=== PATIENT | female | born 1980 | race Caucasian/White ===

== ENCOUNTER 2017-03-19 23:41 | Emergency (ER) | payer OTHER ==
[~2017-03-19] VITALS: Ht 157.5 cm; Wt 61.2 kg
[2017-03-19 23:41] VITALS: BP_SYST 129
--- NOTE | 2017-03-19 23:41 | NUR ---
Patient to ER bed 7 to gown for evaluation. Side rails up. Report given to RAFAEL Teresa.
[2017-03-20] MEDS ORDERED: PREN-89 PO (00:06)
--- NOTE | 2017-03-20 00:18 | NUR ---
Pt noted spotting when pt voided. Pt stated she noted spotting 03/19/17 as well but stopped. Pt has gravid 5, PARA 4. Pt denied abdominal pain or discomfort at the time. Pt denied nausea or vomiting. Will continue to monitor
--- NOTE | 2017-03-20 00:29 | NUR ---
ER Dr. Trinidad at bedside examining patient.
[2017-03-20 00:54] VITALS: BP_SYST 118
[2017-03-20 01:15] LABS: BASOPHILS # (AUTO) 0.1 K/uL (0.0-0.2); BASOPHILS % (AUTO) 0.5 % (0.0-2.0); EOSINOPHILS # (AUTO) 0.8 K/uL (0.0-0.4); EOSINOPHILS % (AUTO) 7.2 % (0.0-4.0); HEMOGLOBIN 12.9 g/dL (12.0-16.0); MEAN CORPUSCULAR HEMOGLOBIN 32 pg (27-31); MEAN CORPUSCULAR HGB CONC 34 % (32-36); MEAN CORPUSCULAR VOLUME 94 fL (79.0-98.0); MONOCYTES # (AUTO) 0.5 K/uL (0.0-1.0); NEUTROPHILS % (AUTO) 53.3 % (40.0-70.0); PLATELET COUNT (AUTO) 222 K/uL (130-430); RED BLOOD CELL COUNT(AUTO) 4.06 MIL/uL (4.2-6.2); RED CELL DISTRIBUTION WIDTH 12.8 % (9.0-15.0); WHITE BLOOD COUNT (AUTO) 11.4 K/uL (4.8-10.8)
[2017-03-20 01:25] LABS: CALCIUM 8.8 mg/dL (8.4-11.0); CREATININE 0.61 mg/dL (0.55-1.30); POTASSIUM 3.8 mmol/L (3.5-5.1)
[2017-03-20 02:01] LABS: ALBUMIN 3.7 g/dL (3.4-4.8); TOTAL BILIRUBIN 0.3 mg/dL (0.0-1.0); TOTAL PROTEIN, SERUM 7.1 g/dL (6.4-8.3)
--- NOTE | 2017-03-20 03:19 | NUR ---
Patient given written and verbal discharge instructions and verbalizes understanding. ER MD discussed with patient the results and treatment provided. Patient in stable condition. ID arm band removed. Pt educated to follow up with her OBGYN. Verbalized understanding. No Rx of given. Patient educated on pain management and to follow up with PMD. Pain Scale 0/10. Opportunity for questions provided and answered.
[2017-03-20 03:58] LABS: BILIRUBIN,URINE NEGATIVE (NEGATIVE); BLOOD, URINE 2+ (NEGATIVE); CLARITY/URINE CLEAR (CLEAR); COLOR,URINE YELLOW (YELLOW); GLUCOSE,URINE NEGATIVE (NEGATIVE); KETONES,URINE NEGATIVE (NEGATIVE); LEUKOCYTE ESTERASE ,URINE NEGATIVE (NEGATIVE); NITRITE, URINE NEGATIVE (NEGATIVE); PROTEIN URINE NEGATIVE (NEGATIVE); UROBILINOGEN,URINE 0.2 (0.2-1.0)
[2017-03-20 04:01] LABS: BACTERIA,URINE FEW /HPF (None Seen); MUCUS,URINE None Seen /LPF (None Seen); RBC,URINE 0-3 /HPF (0-3); WBC,URINE 0-3 /HPF (0-3)
== END 2017-03-20 03:19 | disposition home or self-care (01) ==
LOC: SED 23:41
DX: O20.9 Hemorrhage in early pregnancy, unspecified (principal); Z3A.08 8 weeks gestation of pregnancy
CPT/HCPCS: 36415; 76801; 76817; 80053; 81000-TC; 81025; 84702-TC; 85025; 86900; 86901; 99285

== ENCOUNTER 2017-03-21 05:12 | Emergency (ER) | payer OTHER ==
[~2017-03-21] VITALS: Ht 157.5 cm; Wt 61.2 kg
[2017-03-21 05:12] VITALS: BP_SYST 121
[~2017-03-21 05:12] MED LIST: PREN-89 PO
--- NOTE | 2017-03-21 05:12 | NUR ---
Patient to ER bed 7 to gown for evaluation. Side rails up. Report given to RAFAEL ALONSO.
--- NOTE | 2017-03-21 05:13 | NUR ---
Pt brought in by in stable condition. Pt c/o abd pain and vaginal bleeding since 0030 this morning. Pt stated that she is 6 weeks . Pt stated that she noticed vaginal bleeding since 03/19. Pt stated that she had passed multiple clots since vaginal bleeding began. -sob -chest pain. No acute distress noted at this time, will continue to monitor
--- NOTE | 2017-03-21 05:13 | NUR ---
ER at bedside examining patient.
--- NOTE | 2017-03-21 05:30 | NUR ---
Accompanied Dr. Bravo for pelvic exam.
[2017-03-21 06:11] VITALS: BP_SYST 124
--- NOTE | 2017-03-21 06:11 | NUR ---
Patient given written and verbal discharge instructions and verbalizes understanding. ER MD WEAVER discussed with patient the results and treatment provided. Patient in stable condition. ID arm band removed. NO Rx given. Patient educated on pain management and to follow up with PMD. Pain Scale 0/10. Opportunity for questions provided and answered.
== END 2017-03-21 06:11 | disposition home or self-care (01) ==
LOC: SED 05:12
DX: O03.9 Complete or unspecified spontaneous abortion without complication (principal); Z3A.01 Less than 8 weeks gestation of pregnancy
CPT/HCPCS: 88305; 99283

== ENCOUNTER → 2017-04-09 | Outpatient (CLI) | payer OTHER | END | disposition home or self-care (01) | LOC: SLB 22:48 | PROVIDERS: ATTEND Specialist | DX: O03.9 Complete or unspecified spontaneous abortion without complication (principal); Z3A.00 Weeks of gestation of pregnancy not specified | CPT/HCPCS: 36415; 84702-TC ==

== ENCOUNTER 2017-04-26 02:26 | Outpatient (CLI) | payer OTHER | END 2017-04-26 20:26 | disposition home or self-care (01) | LOC: SLB 02:26 | PROVIDERS: ATTEND Specialist | DX: O02.1 Missed abortion (principal); Z3A.00 Weeks of gestation of pregnancy not specified | CPT/HCPCS: 36415; 84702-TC ==

== ENCOUNTER 2019-01-16 09:40 | Day surgery (SDC) | payer OTHER ==
[2019-01-14 15:17] LABS: BASOPHILS % (AUTO) 0.3 % (0.0-2.0); EOSINOPHILS # (AUTO) 0.4 K/uL (0.0-0.4); HEMATOCRIT 40.7 % (36-48); HEMOGLOBIN 13.8 g/dL (12.0-16.0); LYMPHOCYTES # (AUTO) 3.7 K/uL (1.0-5.5); LYMPHOCYTES % (AUTO) 50.9 % (20.5-51.5); MEAN CORPUSCULAR HEMOGLOBIN 31 pg (27-31); MEAN CORPUSCULAR HGB CONC 34 % (32-36); MEAN CORPUSCULAR VOLUME 90 fL (79.0-98.0); MONOCYTES # (AUTO) 0.3 K/uL (0.0-1.0); MONOCYTES % (AUTO) 4.7 % (1.7-9.3); NEUTROPHILS # (AUTO) 2.8 K/uL (1.8-7.7); NEUTROPHILS % (AUTO) 38.1 % (40.0-70.0); PLATELET COUNT (AUTO) 244 K/uL (130-430); RED CELL DISTRIBUTION WIDTH 13.9 % (9.0-15.0); WHITE BLOOD COUNT (AUTO) 7.3 K/uL (4.8-10.8)
[2019-01-14 15:39] LABS: BILIRUBIN,URINE NEGATIVE (NEGATIVE); CLARITY/URINE CLEAR (CLEAR); COLOR,URINE YELLOW (YELLOW); GLUCOSE,URINE NEGATIVE (NEGATIVE); KETONES,URINE NEGATIVE (NEGATIVE); LEUKOCYTE ESTERASE ,URINE NEGATIVE (NEGATIVE); NITRITE, URINE NEGATIVE (NEGATIVE); PH,URINE 6.5 (5.0-8.0); PROTEIN URINE NEGATIVE (NEGATIVE); UROBILINOGEN,URINE 0.2 (0.2-1.0)
[2019-01-14 15:41] LABS: BLOOD, URINE TRACE (NEGATIVE)
[2019-01-14 15:47] LABS: BACTERIA,URINE FEW /HPF (None Seen); RBC,URINE 0-3 /HPF (0-3); WBC,URINE 0-3 /HPF (0-3)
[~2019-01-16] VITALS: Ht 157.5 cm; Wt 54.4 kg
[~2019-01-16 09:40] MED LIST changes: +CEFAZOLIN SOD 1 GM/ ISO 50 ML PREMIX IV ONE
[2019-01-16] MEDS ORDERED: ONDANSETRON HCL 4 MG/2 ML VIAL IVP PRN ×2 (10:00→12:15)
[2019-01-16] MEDS ORDERED: fentaNYL CITRATE/PF 100 MCG/2 ML AMP IVP PRN ×2 (10:00)
[2019-01-16] MEDS ORDERED: KETOROLAC TROMETHAMINE 30 MG VIAL IVP PRN (10:00)
[2019-01-16] MEDS ORDERED: GLYCOPYRROLATE 0.2 MG/ML VIAL ONE (12:15)
[2019-01-16] MEDS ORDERED: NS IRRIG SOLN 1000 ML IR ONE (12:15)
[2019-01-16] MEDS ORDERED: KETOROLAC TROMETHAMINE 30 MG VIAL ONE (12:15)
[2019-01-16] MEDS ORDERED: fentaNYL CITRATE/PF 100 MCG/2 ML AMP ONE (12:15)
[2019-01-16] MEDS ORDERED: ONDANSETRON HCL 4 MG/2 ML VIAL ONE (12:15)
[2019-01-16] MEDS ORDERED: PHENYLEPHRINE HCL 10 MG/ML VIAL (NEOSYNEPHRINE) ONE (12:15)
[2019-01-16] MEDS ORDERED: LIDOCAINE 2%, 20 ML MDV ONE (12:15)
[2019-01-16] MEDS ORDERED: SEVOFLURANE 15 MIN GAS INH ONE (12:15)
[2019-01-16] MEDS ORDERED: NEOSTIGMINE METHYLSULFATE 1 MG/ML, 10 ML VIAL ONE (12:15)
[2019-01-16] MEDS ORDERED: CEFAZOLIN 2 GM IVPB PREMIX 50 ML IV ONE (12:15)
[2019-01-16] MEDS ORDERED: PROPOFOL 200MG/ 20ML VIAL (DIPRIVAN) IV ONE (12:15)
[2019-01-16] MEDS ORDERED: HYDROcodone/ACETAMIN 5-325 MG TAB (NORCO/ VICODIN) PO PRN (12:15)
[2019-01-16] MEDS ORDERED: ROCURONIUM BROMIDE 10 MG/ML (ZEMURON) ONE (12:15)
[2019-01-16] MEDS ORDERED: BUPIVACAINE /EPINEPHRINE/PF 0.25% 30 ML VIAL INJ ONE (12:15)
[2019-01-16] MEDS ORDERED: BUPIVACAINE /PF 0.5% 30 ML VIAL ONE (12:15)
[2019-01-16] MEDS ORDERED: OXYCODONE/ACETAMINOPHEN 5-325 TABLET PO PRN ×2 (12:15)
[2019-01-16] MEDS ORDERED: NS 1000 ML IV.SOLN IV ONE (12:15)
[2019-01-16] MEDS ORDERED: MIDAZOLAM HCL 5 MG/ML VIAL (VERSED) IV ONE (12:15)
[2019-01-16] MEDS ORDERED: LR 1,000 ML IV.SOLN IV ONE (12:15)
[2019-01-16] MEDS ORDERED: SIMETHICONE 80 MG TAB.CHEW PO SCH (13:00)
[2019-01-16] MEDS ORDERED: KETOROLAC TROMETHAMINE 30 MG VIAL IVP ONE (13:30)
[2019-01-16] MEDS ORDERED: OXYCODONE/ACETAMINOPHEN 5-325 TABLET ONE ×2 (14:16→14:19)
[2019-01-16 16:25] VITALS: BP_SYST 128
[2019-01-17 05:06] LABS: HEPATITIS B CORE AB, TOTAL Negative (Negative); HEPATITIS B SURFACE AG Negative (Negative); HEPATITIS C VIRUS AB <0.1 s/co ratio (0.0-0.9)
== END 2019-01-16 16:25 | disposition still patient (30) ==
LOC: SDS 09:40 → SMU 09:41 → SDS 16:25
PROVIDERS: ATTEND Specialist
DX: Z30.2 Encounter for sterilization (principal); N93.8 Other specified abnormal uterine and vaginal bleeding; N97.9 Female infertility, unspecified; N73.6 Female pelvic peritoneal adhesions (postinfective); N85.4 Malposition of uterus
CPT/HCPCS: 36415 ×2; 58563; 58661; 81000; 84702; 85025; 86704; 86706; 86803; 87340; 87536; 88302; C1727; J0690 ×2; J1885; J2001; J2250; J2370; J2405; J2704; J2710; J3010; J3490 ×3; J7030; J7120

== ENCOUNTER → 2019-05-09 | Outpatient (CLI) | payer OTHER ==
[~2019-05-09] MED LIST changes: -CEFAZOLIN SOD 1 GM/ ISO 50 ML PREMIX IV ONE
[2019-05-11 14:07] LABS: VARICELLA ZOSTER IgG 2683 index (Immune >165)
[2019-05-16 12:07] LABS: RUBELLA AB, IgM <20.0 AU/mL (0.0-19.9)
== END | disposition home or self-care (01) ==
LOC: SLB 20:49
PROVIDERS: ATTEND Emergency Medicine
DX: Z01.84 Encounter for antibody response examination (principal)
CPT/HCPCS: 36415; 86706; 86735; 86762; 86765; 86787